=== PATIENT | female | born 1945 | race African-American/Black ===

== ENCOUNTER 2019-08-13 15:56 | Emergency (ER) | payer OTHER ==
[~2019-08-13] VITALS: Ht 167.6 cm; Wt 85.0 kg
[2019-08-13] MEDS ORDERED: KETOROLAC 15MG/ML VIAL IM ONE (17:00)
[2019-08-13 18:06] VITALS: BP 140/52
== END 2019-08-13 19:24 | disposition home or self-care (01) ==
LOC: ER 15:56
DX: S82.51XA Displaced fracture of medial malleolus of right tibia, initial encounter for closed fracture (principal); W18.39XA Other fall on same level, initial encounter; Y93.89 Activity, other specified; Y92.89 Other specified places as the place of occurrence of the external cause; Y99.8 Other external cause status
CPT/HCPCS: 29515; 73610; 96372; 99283; J1885